=== PATIENT | male | born 1960 | race Caucasian/White ===

== ENCOUNTER 2016-05-07 19:31 | Inpatient (IN) | payer BC ==
[2016-05-07] MEDS ORDERED: SODIUM CHLORIDE 0.9% 1,000 ML IV STA (20:01)
[2016-05-07] MEDS ORDERED: SODIUM CHLORIDE 0.9% 2,000 ML IV ONE (20:01)
--- NOTE | 2016-05-07 20:03 | ED ---
General Adult HPI - General Chief complaint: Abdominal Pain Stated complaint: Blood Sugar Time Seen by Provider: 05/07/16 19:48 Source: patient, RN notes reviewed Mode of arrival: ambulatory Limitations: no limitations - History of Present Illness Initial comments: This is a 55-year-old male with a benign past medical history but a family history of diabetes who states he's had polyuria and polydipsia for about the last week and a half. He denies any headaches dizziness he has some blurred vision no fevers chills sweats no cough sore throat earaches and dysuria no hematuria to see polyuria. He denies any other complaints this time denies any overt weight loss he is aware of denies any generalized weakness. - Related Data Home Medications Medication Instructions Recorded Confirmed Thrive Patch 1 patch TOPICAL DAILY 05/07/16 05/07/16 Thrive Supplement 1 cap PO TID 05/07/16 05/07/16 Allergies Allergy/AdvReac Type Severity Reaction Status Date / Time No Known Allergies Allergy Verified 05/07/16 19:46 Review of Systems ROS Statement: Those systems with pertinent positive or pertinent negative responses have been documented in the HPI. ROS Other: All systems not noted in ROS Statement are negative. Past Medical History Past Medical History: No Reported History History of Any Multi-Drug Resistant Organisms: None Reported Past Surgical History: Appendectomy, Ear Surgery Additional Past Surgical History / Comment(s): Eye surgery Past Psychological History: No Psychological Hx Reported Smoking Status: Never smoker Past Alcohol Use History: Occasional Past Drug Use History: None Reported General Exam - General Exam Comments Initial Comments: This is a well-developed well-nourished awake alert oriented x 3 male Limitations: no limitations General appearance: alert, in no apparent distress Head exam: Present: atraumatic, normocephalic, normal inspection Eye exam: Present: normal appearance, PERRL, EOMI. Absent: scleral icterus, conjunctival injection, periorbital swelling ENT exam: Present: mucous membranes dry Neck exam: Present: normal inspection. Absent: tenderness, meningismus, lymphadenopathy Respiratory exam: Present: normal lung sounds bilaterally. Absent: respiratory distress, wheezes, rales, rhonchi, stridor Cardiovascular Exam: Present: regular rate, normal rhythm, normal heart sounds. Absent: systolic murmur, diastolic murmur, rubs, gallop, clicks GI/Abdominal exam: Present: soft, normal bowel sounds. Absent: distended, tenderness, guarding, rebound, rigid Extremities exam: Present: normal inspection, full ROM, normal capillary refill. Absent: tenderness, pedal edema, joint swelling, calf tenderness Back exam: Present: normal inspection Neurological exam: Present: alert, oriented X3, CN II-XII intact Psychiatric exam: Present: normal affect, normal mood Skin exam: Present: warm, dry, intact, normal color. Absent: rash Course Vital Signs 05/07/16 05/07/16 05/07/16 19:35 20:07 22:10 Temperature 98.6 F Pulse Rate 87 81 Respiratory 18 18 18 Rate Blood Pressure 169/89 145/81 O2 Sat by Pulse 98 96 Oximetry Medical Decision Making - Medical Decision Making Did discuss findings with patient family patient will be admitted for glucose control. New-onset diabetes - Lab Data Result diagrams: 05/07/16 20:00 05/07/16 20:00 Lab Results 05/07/16 05/07/16 05/07/16 Range/Units 20:00 20:00 20:00 WBC 6.6 (3.8-10.6) k/uL RBC 5.41 (4.30-5.90) m/uL Hgb 15.3 (13.0-17.5) gm/dL Hct 45.4 (39.0-53.0) % MCV 84.0 (80.0-100.0) fL MCH 28.2 (25.0-35.0) pg MCHC 33.6 (31.0-37.0) g/dL RDW 14.0 (11.5-15.5) % Plt Count 186 (150-450) k/uL Neutrophils % 53 % Lymphocytes % 34 % Monocytes % 6 % Eosinophils % 3 % Basophils % 1 % Neutrophils # 3.5 (1.3-7.7) k/uL Lymphocytes # 2.2 (1.0-4.8) k/uL Monocytes # 0.4 (0-1.0) k/uL Eosinophils # 0.2 (0-0.7) k/uL Basophils # 0.0 (0-0.2) k/uL Sodium 137 (137-145) mmol/L Potassium 4.0 (3.5-5.1) mmol/L Chloride 101 (98-107) mmol/L Carbon Dioxide 22 (22-30) mmol/L Anion Gap 14 mmol/L BUN 14 (9-20) mg/dL Creatinine 1.00 (0.66-1.25) mg/dL Est GFR (MDRD) Af Amer >60 (>60 ml/min/1.73 sqM) Est GFR (MDRD) Non-Af >60 (>60 ml/min/1.73 sqM) Glucose 562 H* (74-99) mg/dL POC Glucose (mg/dL) (75-99) mg/dL POC Glu [employer] ID [address] Glu mg/dL 246 mg/dL Hemoglobin A1c 10.2 H (4.2-6.1) % Calcium 9.0 (8.4-10.2) mg/dL Magnesium 2.0 (1.6-2.3) mg/dL Total Bilirubin 1.0 (0.2-1.3) mg/dL AST 39 (17-59) U/L ALT 61 (21-72) U/L Alkaline Phosphatase 173 H (38-126) U/L Total Protein 6.7 (6.3-8.2) g/dL Albumin 4.1 (3.5-5.0) g/dL Amylase 33 (30-110) U/L Lipase 110 (23-300) U/L Urine Color Urine Appearance (Clear) Urine pH (5.0-8.0) Ur Specific [place] (1.001-1.035) Urine Protein (Negative) Urine Glucose (UA) (Negative) Urine Ketones (Negative) Urine Blood (Negative) Urine Nitrate (Negative) Urine Bilirubin (Negative) Urine Urobilinogen (<2.0) mg/dL Ur Leukocyte Esterase (Negative) Acetone, Qual Negative (Negative) 05/07/16 05/07/16 Range/Units 20:15 22:30 WBC (3.8-10.6) k/uL RBC (4.30-5.90) m/uL Hgb (13.0-17.5) gm/dL Hct (39.0-53.0) % MCV (80.0-100.0) fL MCH (25.0-35.0) pg MCHC (31.0-37.0) g/dL RDW (11.5-15.5) % Plt Count (150-450) k/uL Neutrophils % % Lymphocytes % % Monocytes % % Eosinophils % % Basophils % % Neutrophils # (1.3-7.7) k/uL Lymphocytes # (1.0-4.8) k/uL Monocytes # (0-1.0) k/uL Eosinophils # (0-0.7) k/uL Basophils # (0-0.2) k/uL Sodium (137-145) mmol/L Potassium (3.5-5.1) mmol/L Chloride (98-107) mmol/L Carbon Dioxide (22-30) mmol/L Anion Gap mmol/L BUN (9-20) mg/dL Creatinine (0.66-1.25) mg/dL Est GFR (MDRD) Af Amer (>60 ml/min/1.73 sqM) Est GFR (MDRD) Non-Af (>60 ml/min/1.73 sqM) Glucose (74-99) mg/dL POC Glucose (mg/dL) 437 H (75-99) mg/dL POC Glu [employer] ID Anjali [address]ise [address] Glu mg/dL mg/dL Hemoglobin A1c (4.2-6.1) % Calcium (8.4-10.2) mg/dL Magnesium (1.6-2.3) mg/dL Total Bilirubin (0.2-1.3) mg/dL AST (17-59) U/L ALT (21-72) U/L Alkaline Phosphatase (38-126) U/L Total Protein (6.3-8.2) g/dL Albumin (3.5-5.0) g/dL Amylase (30-110) U/L Lipase (23-300) U/L Urine Color Light Yellow Urine Appearance Clear (Clear) Urine pH 5.5 (5.0-8.0) Ur Specific [place] 1.028 (1.001-1.035) Urine Protein Negative (Negative) Urine Glucose (UA) 4+ H (Negative) Urine Ketones Negative (Negative) Urine Blood Negative (Negative) Urine Nitrate Negative (Negative) Urine Bilirubin Negative (Negative) Urine Urobilinogen <2.0 (<2.0) mg/dL Ur Leukocyte Esterase Negative (Negative) Acetone, Qual (Negative) - Radiology Data Radiology results: report reviewed (X-rays demonstrate no acute findings), image reviewed Disposition Clinical Impression: Diabetes mellitus, new onset, Hyperglycemia, Dehydration Disposition: ADMITTED IP TO THIS HOSP Condition: Stable
[2016-05-07 20:21] LABS: Basophils % (A) 1 %; CH 29.2; Eosinophils # (A) 0.2 k/uL (0-0.7); Eosinophils % (A) 3 %; HCT 45.4 % (39.0-53.0); HDW 3.13; HGB 15.3 gm/dL (13.0-17.5); Luc # (Auto) 0.18; Luc % (Auto) 3; Lymphocytes # (A) 2.2 k/uL (1.0-4.8); Lymphocytes % (A) 34 %; MCH 28.2 pg (25.0-35.0); MCHC 33.6 g/dL (31.0-37.0); Mean Platelet Volume 7.6; Monocytes # (A) 0.4 k/uL (0-1.0); Monocytes % (A) 6 %; Neutrophils # (A) 3.5 k/uL (1.3-7.7); Neutrophils % (A) 53 %; RBC 5.41 m/uL (4.30-5.90); WBC 6.6 k/uL (3.8-10.6); WBC (Perox) 6.53
[2016-05-07 20:35] LABS: ALT 61 U/L (21-72); AST 39 U/L (17-59); Alkaline Phosphatase 173 U/L (38-126); Amylase 33 U/L (30-110); Anion Gap 14 mmol/L; Blood Urea Nitrogen 14 mg/dL (9-20); Carbon Dioxide 22 mmol/L (22-30); Chloride 101 mmol/L (98-107); Non-African American GFR(MDRD) >60 (>60 ml/min/1.73 sqM); Sodium 137 mmol/L (137-145); Total Protein 6.7 g/dL (6.3-8.2)
[2016-05-07 20:42] LABS: Glucose 562 mg/dL (74-99)
--- NOTE | 2016-05-07 20:44 | XR ---
EXAMINATION TYPE: XR chest 2V DATE OF EXAM: 05/07/2016 8:34 PM COMPARISON: NONE HISTORY: Blurred vision. Diabetes. TECHNIQUE: Frontal and lateral views of the chest are obtained. FINDINGS: Heart and mediastinum are normal. Lungs are clear. Diaphragm is normal. Bony thorax is int act. IMPRESSION: Normal chest
[2016-05-07 21:03] LABS: Appearance,Urine Clear (Clear); Bilirubin,Urine Negative (Negative); Glucose,Urine (UA) 4+ (Negative); Ketones,Urine Negative (Negative); Leukocyte Esterase,Urine Negative (Negative); Nitrite,Urine Negative (Negative); PH, Urine 5.5 (5.0-8.0); Protein,Urine Negative (Negative); Specific Gravity,Urine 1.028 (1.001-1.035); UA Billing (MACRO vs. MICRO) CHEM; Urobilinogen,Urine <2.0 mg/dL (<2.0)
[2016-05-07] MEDS ORDERED: INSULIN REGULAR 100 UNIT in SODIUM CHLORIDE 0.9% 100 ML IV ONE ×2 (21:09→21:50)
[2016-05-07 21:58] LABS: Hemoglobin A1C 10.2 % (4.2-6.1)
[2016-05-07 22:35] LABS: Glucose,Whole Blood 437 mg/dL (75-99)
[2016-05-07] MEDS ORDERED: NALOXONE 0.4 MG/ML 1 ML VIAL IV PRN (22:53)
[2016-05-07 23:18] LABS: Glucose,Whole Blood 304 mg/dL (75-99)
[2016-05-08 00:57] LABS: Glucose,Whole Blood 83 mg/dL (75-99)
[2016-05-08 01:36] LABS: Glucose,Whole Blood 160 mg/dL (75-99)
[2016-05-08 02:42] LABS: Glucose,Whole Blood 234 mg/dL (75-99)
[2016-05-08 04:59] LABS: Glucose,Whole Blood 182 mg/dL (75-99)
[2016-05-08 06:35] LABS: Glucose,Whole Blood 117 mg/dL (75-99)
[2016-05-08 07:38] LABS: Glucose,Whole Blood 160 mg/dL (75-99)
[2016-05-08 08:39] LABS: Glucose,Whole Blood 493 mg/dL (75-99)
[2016-05-08 09:42] LABS: Glucose,Whole Blood 189 mg/dL (75-99)
[2016-05-08] MEDS ORDERED: metFORMIN 500 MG TAB PO SCH (10:45)
[2016-05-08 11:09] LABS: Glucose,Whole Blood 219 mg/dL (75-99)
[2016-05-08] MEDS ORDERED: INSULIN LISPRO (humaLOG) 300 UNIT/3 ML VIAL SQ SCH (12:30)
[2016-05-08 12:55] VITALS: BMI 33.4
[2016-05-08] MEDS: glipiZIDE 10 MG TAB PO SCH ×2 (13:58→17:38)
[2016-05-08] MEDS ORDERED: metFORMIN 500 MG TAB PO ONE (14:15)
[2016-05-08 15:15] LABS: Appearance,Urine Clear (Clear); Bilirubin,Urine Negative (Negative); Glucose,Urine (UA) 4+ (Negative); Ketones,Urine Trace (Negative); Leukocyte Esterase,Urine Negative (Negative); Nitrite,Urine Negative (Negative); Protein,Urine Negative (Negative); Specific Gravity,Urine 1.011 (1.001-1.035); UA Billing (MACRO vs. MICRO) CHEM
--- NOTE | 2016-05-08 15:48 | HP ---
DATE OF ADMISSION: 05/07/2016 CHIEF COMPLAINT: Uncontrolled blood sugars. 55-year-old gentleman with past medical history of appendectomy. No other significant medical issues, not being followed by any primary care physician in the outpatient setting, not feeling well over the past several weeks. The patient had blurring of eye vision and as well as increased thirst and increased urine output. The patient checked the blood sugar at home which was found to be extremely high and the patient came to [facility] and admitted to the hospital for further evaluation and treatment. On admission the glucose 105/62. There was no evidence of ketosis. Hemoglobin A1C 10.2. Of note, both the patient's parents were having diabetes at advanced. There is no history of fever, rigors or chills. There is no history of headache, loss of conscious, seizures. Past medical history: history of appendectomy. Medications prior to admission include: Thrive supplement and patch. ALLERGIES: None. FAMILY HISTORY: History of diabetes type II in both parents. History of COPD, history of macular degeneration. SOCIAL HISTORY: No history of smoking. No history of alcohol intake. REVIEW OF SYSTEMS: ENT: No diminished vision. No diminished hearing. Otherwise as mentioned earlier. CARDIOVASCULAR: No angina or palpitations. RESPIRATORY: No cough. No hemoptysis. GI: No nausea. : No dysuria. Nervous system: No numbness or weakness. ALLERGY/IMMUNOLOGY: No asthma or hayfever. MUSCULOSKELETAL: As mentioned earlier. HEMATOLOGY/ONCOLOGY: No history of anemia. ENDOCRINE: No history of diabetes or hypothyroidism. CONSTITUTIONAL: as mentioned earlier. DERMATOLOGY: Negative. RHEUMATOLOGY: Negative. PSYCHIATRY: As mentioned earlier. PHYSICAL EXAMINATION: The patient is alert and oriented times three. Pulse 66. Blood pressure 138/87. Respiratory rate 20. Temperature 97.8. Pulse ox 99% on room air. HEENT: Conjunctivae normal. NECK: No jugular venous distention. CARDIOVASCULAR: S1, S2 muffled. RESPIRATORY: Breath sounds diminished at the bases. No rhonchi, no crackles. ABDOMEN: Soft, obese, nontender. No mass palpable. Legs: No edema. No swelling. Nervous system: Higher functions as mentioned. Moves all four limbs. No focal deficits. LYMPHATICS: No lymph nodes palpable in the neck, axillae or groin. SKIN: No ulcer, rash or bleeding. LABS: CBC within normal limits. Glucose 560. ASSESSMENT: 1. Uncontrolled blood sugars, new onset diabetes type 2. 2. Hemoglobin A1c 10.2. 3. Obesity, body mass index of 33.5. 4. History of appendectomy. RECOMMENDATIONS AND DISCUSSION: In this 55-year-old gentleman who presented with multiple complex medical issues. We will monitor the patient closely. Continue the current medications. Continue symptomatic treatment. The patient on insulin drip at this time. Otherwise, I would recommend continue to monitor, Glucophage and Glucotrol, Glipizide will be started and continue to monitor. The blood sugar will be continuously monitored. Prognosis is guarded because of multiple complex medical issues. Further recommendations to follow. I would also recommend the patient to follow up with primary care physician closely in the outpatient setting. BARBARA
[2016-05-08 17:07] LABS: Glucose,Whole Blood 227 mg/dL (75-99)
[2016-05-08] MEDS: INSULIN LISPRO (humaLOG) 300 UNIT/3 ML VIAL SQ SCH ×2 (17:38→22:01)
[2016-05-08] MEDS: metFORMIN 500 MG TAB PO SCH (17:38)
[2016-05-08 20:56] LABS: Glucose,Whole Blood 185 mg/dL (75-99)
[2016-05-08 22:52] VITALS: RESP 18
[2016-05-08] MEDS ORDERED: ACETAMINOPHEN TAB 325 MG TAB PO PRN (23:55)
[2016-05-09 07:31] LABS: Glucose,Whole Blood 190 mg/dL (75-99)
[2016-05-09] MEDS: metFORMIN 500 MG TAB PO SCH (07:58)
[2016-05-09] MEDS: glipiZIDE 10 MG TAB PO SCH (07:58)
[2016-05-09] MEDS: INSULIN LISPRO (humaLOG) 300 UNIT/3 ML VIAL SQ SCH ×2 (07:59→13:07)
[2016-05-09 08:18] LABS: Basophils % (A) 1 %; CH 29.1; Eosinophils # (A) 0.2 k/uL (0-0.7); Eosinophils % (A) 3 %; HCT 45.3 % (39.0-53.0); HDW 3.15; HGB 15.2 gm/dL (13.0-17.5); Luc # (Auto) 0.16; Luc % (Auto) 2; Lymphocytes # (A) 1.4 k/uL (1.0-4.8); Lymphocytes % (A) 19 %; MCH 28.1 pg (25.0-35.0); MCHC 33.5 g/dL (31.0-37.0); MCV 83.7 fL (80.0-100.0); Monocytes # (A) 0.4 k/uL (0-1.0); Monocytes % (A) 6 %; Neutrophils # (A) 5.2 k/uL (1.3-7.7); Neutrophils % (A) 70 %; RBC 5.41 m/uL (4.30-5.90); RDW 14.1 % (11.5-15.5); WBC 7.4 k/uL (3.8-10.6)
[2016-05-09 08:37] LABS: Anion Gap 10 mmol/L; Blood Urea Nitrogen 8 mg/dL (9-20); Calcium 8.5 mg/dL (8.4-10.2); Carbon Dioxide 23 mmol/L (22-30); Chloride 106 mmol/L (98-107); Cholesterol 142 mg/dL (<200); Glucose 205 mg/dL (74-99); HDL Cholesterol 25 mg/dL (40-60); Non-African American GFR(MDRD) >60 (>60 ml/min/1.73 sqM); Potassium 3.6 mmol/L (3.5-5.1); Sodium 139 mmol/L (137-145); Triglycerides 191 mg/dL (<150)
[2016-05-09 09:37] VITALS: BP 133/84; PULSE 78; TEMP 97.9
[2016-05-09] MEDS ORDERED: MULTIVITAMINS, THERA 1 EACH TAB PO SCH (12:00)
[2016-05-09 12:34] LABS: Glucose,Whole Blood 189 mg/dL (75-99)
--- NOTE | 2016-05-10 19:24 | DS ---
DATE OF ADMISSION: 05/07/2016 DATE OF DISCHARGE: 05/09/2016 FINAL DIAGNOSES: 1. Uncontrolled blood sugars with new onset uncontrolled diabetes type 2. 2. Hemoglobin A1c 10.2. 3. Obesity, body mass index of 33.5. 4. History of appendectomy. DISCHARGE DISPOSITION: The patient will be discharged in stable condition with guarded prognosis. HISTORY OF PRESENT ILLNESS: This 55-year-old gentleman with a past medical history of multiple medical problems admitted with new-onset uncontrolled blood sugars. The patient was started on oral medications. Initially, insulin was used with the oral medication. Blood sugars improved significantly to 189. On exam, vital are stable. CARDIOVASCULAR: S1 and S2 muffled. ABDOMEN: Soft. NERVOUS SYSTEM: Nonfocal. DISCHARGE ADVICE AND MEDICATIONS : 1. Diet is cardiac. 2. Activity limited until followup with Dr. Km King in 2 to 3 days. 3. Accu-Cheks a.c. and at bedtime with Dr. King. 4. Medications are: a. Thrive patch and supplement as before. b. Multivitamin 1 p.o. daily. c. Glucotrol 10 mg b.i.d. d. Glucophage 1000 mg p.o. b.i.d. The patient will be discharged in stable condition with guarded prognosis. The patient might be started on insulin if blood sugar is not controlled with the p.o. medications.
== END 2016-05-09 13:17 | disposition home or self-care (01) | DRG 639 ==
LOC: EC 19:31 → 4MS4W 22:53
PROVIDERS: ADMIT Internal Medicine; ATTEND Internal Medicine
DX: E11.65 Type 2 diabetes mellitus with hyperglycemia (principal); E86.0 Dehydration; E66.9 Obesity, unspecified; Z68.33 Body mass index [BMI] 33.0-33.9, adult
CPT/HCPCS: 36415; 71020; 80048; 80053; 80061; 81003; 82009; 82150; 83036; 83690; 83735; 85025; 96365; 99285